=== PATIENT | female | born 1970 ===

== ENCOUNTER 2017-02-22 09:22 | Emergency (ER) | payer SELFPAY ==
[2017-02-22 09:22] VITALS: BMI 39.6
[2017-02-22 09:34] VITALS: O2SAT 98
[2017-02-22] MEDS ORDERED: Oxycodone/Acetaminophen 5/325 mg Tab PO STA (10:42)
[2017-02-22] MEDS ORDERED: Oxycodone/Acetaminophen 5/325 mg Tab ONE (10:54)
--- NOTE | 2017-02-22 11:01 | ED PDOC ---
Upper Extremity Pain/Injury Time Seen by Provider: 02/22/17 10:15 Chief Complaint (Nursing): Upper Extremity Problem/Injury History Per: Patient History/Exam Limitations: no limitations Onset/Duration Of Symptoms: Days (4), Gradual Current Symptoms Are (Timing): Still Present Quality: Dull Severity: Mild Exacerbating Factor(s): Nothing Additional History Per: Patient Additional Complaint(s): c/o painful lump on left axilla x4 days. Reports taking medication with no relief. states nml mamogram last year Past Medical History Reviewed: Historical Data, Nursing Documentation, Vital Signs Vital Signs: Last Vital Signs Temp 98.3 F 02/22/17 09:34 Pulse 73 02/22/17 09:34 Resp 18 02/22/17 09:34 BP 114/73 02/22/17 09:34 Pulse Ox 98 02/22/17 09:34 - Medical History PMH: Arthritis, Asthma, Diabetes, HTN, Hypercholesterolemia - Surgical History Surgical History: Appendectomy, Tonsillectomy, - Family History Family History: States: Unknown Family Hx - Living Arrangements Living Arrangements: With Family - Social History Current smoker - smoking cessation education provided: No - Home Medications Home Medications: Ambulatory Orders Medication Instructions Recorded Acetaminophen with Codeine 1 tab PO Q8H #10 tab 07/30/14 [Tylenol with Codeine No. 3 300 mg-30 mg] Cephalexin [Keflex] 500 mg PO QID #40 cap 07/30/14 Naproxen [Naprosyn] 500 mg PO Q12H #20 tab 09/23/14 Ibuprofen [Motrin] 600 mg PO Q8 #30 tab 03/11/15 Clindamycin [Cleocin] 300 mg PO TID #30 cap 05/18/15 Docusate Sodium [Colace] 100 mg PO BID #20 sgl 10/07/15 Naproxen 375 mg PO Q8 PRN #21 tab 10/07/15 diaZEpam [Valium] 5 mg PO Q6 PRN #14 tab 10/07/15 oxyCODONE/Acetaminophen [Percocet 1 ea PO Q6 #15 tab 10/07/15 5/325 mg Tab] Naproxen [Naprosyn] 500 mg PO BID #20 tab 02/25/16 Azithromycin [Zithromax] 250 mg PO DAILY #6 tablet 06/04/16 Neomycin/Polymyxin/Hydrocortis 3 drop OT TID #0 bottle 06/04/16 [Cortisporin Otic Susp] Tobramycin 0.3% [Tobramycin 5 Ml] 1 drop OP TID #0 bottle 06/04/16 Benzonatate [Tessalon Perles] 100 mg PO BID PRN 5 Days 10/16/16 Ibuprofen [Motrin] 600 mg PO TID 7 Days 10/16/16 Albuterol 0.083% [Albuterol 0.083% 2.5 mg IH Q4 PRN #20 neb 10/24/16 Inhal Fransisca (2.5 mg/3 ml) UD] Albuterol HFA [Ventolin HFA 90 1 - 2 puff IH Q4 PRN #1 inhaler 10/24/16 mcg/actuation (8 g)] Azithromycin [Zithromax] 250 mg PO DAILY #6 tab 10/24/16 Guaifenesin [Mucinex] 600 mg PO BID #14 tab.er.12h 10/24/16 Ibuprofen [Motrin Tab] 600 mg PO Q6 PRN #15 tab 10/24/16 Prednisone 50 mg PO DAILY #4 tab 10/24/16 Cephalexin [Keflex] 500 mg PO QID 28 Days 02/22/17 - Allergies Allergies/Adverse Reactions: Allergies Allergy/AdvReac Type Severity Reaction Status Date / Time No Known Allergies Allergy Verified 02/25/16 11:37 Review of Systems ROS Statement: Except As Marked, All Systems Reviewed And Found Negative Constitutional: Negative for: Fever, Chills Cardiovascular: Negative for: Chest Pain, Palpitations Respiratory: Negative for: Cough, Shortness of Breath Gastrointestinal: Negative for: Nausea, Vomiting, Abdominal Pain, Diarrhea Musculoskeletal: Negative for: Hand Pain Physical Exam - Reviewed Nursing Documentation Reviewed: Yes Vital Signs Reviewed: Yes - Physical Exam Appears: Positive for: Uncomfortable Head Exam: Positive for: ATRAUMATIC, NORMAL INSPECTION, NORMOCEPHALIC Eye Exam: Positive for: Normal appearance Neck: Positive for: Normal, Painless ROM, Supple Cardiovascular/Chest: Positive for: Regular Rate, Rhythm, Chest Non Tender, Other (right breat appears nml no masses) Respiratory: Positive for: Normal Breath Sounds. 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 Negative for: Motor/Sensory Deficits - Laboratory Results Result Diagrams: 02/22/17 13:00 02/22/17 13:00 - ECG O2 Sat by Pulse Oximetry: 98 Pulse Ox Interpretation: Normal - Progress ED Course And Treament: labs nml will f/u for biopsy of lesion, no signs of a drainable abscess but will start on antibiotics. seen by fp schedule for outpt biopsy no indication for inpt admission Re-evaluation Time: 14:01 Condition: Improved Disposition - Clinical Impression Clinical Impression: Abscess of axilla, left - Patient ED Disposition Is Patient to be Admitted: No Counseled Patient/Family Regarding: Studies Performed, Diagnosis, Need For Followup, Rx Given - Disposition Disposition: Routine/Home Disposition Time: 14:03 Condition: GOOD Additional Instructions: Follow up for biopsy. Prescriptions: Cephalexin [Keflex] 500 mg PO QID 28 Days Instructions: Abscess (ED)
--- NOTE | 2017-02-22 12:41 | US ---
PROCEDURE: Ultrasound limited soft tissue HISTORY: mass left axilla COMPARISON: Not available TECHNIQUE: Targeted ultrasound examination was performed in the left axilla in the region of the palpable abnormality. FINDINGS: The examination demonstrates a vascular mass in the subcutaneous soft tissues measuring approximately 1.0 x 0.7 by 1.0 cm. There is an irregular hypoechoic region centrally. This does not have a characteristic appearance of a lymph node. No specific findings. Possible abscess. Cannot rule out neoplasm. No additional abnormality demonstrated. IMPRESSION: Nonspecific soft tissue mass in subcutaneous soft tissues with hypervascularity. Possible abscess or neoplasm. No specific findings. No additional abnormality.
[2017-02-22 13:17] LABS: BASO # 0.1 K/uL (0.0-0.2); BASO % 0.7 % (0.0-2.0); EOS # 0.2 K/uL (0.0-0.7); EOS % 2.5 % (0.0-4.0); HEMATOCRIT 34.6 % (34.0-47.0); LYMPH # 3.2 K/uL (1.0-4.3); LYMPH % 39.5 % (20.0-40.0); MEAN CELL VOLUME 82.1 fl (81.0-99.0); MEAN CORPUSCULAR HEMOGLOBIN 28.3 pg (27.0-31.0); MEAN CORPUSCULAR HGB CONC 34.4 g/dL (33.0-37.0); MONO # 0.6 K/uL (0.0-0.8); MONO % 6.8 % (0.0-10.0); NEUT # 4.1 K/uL (1.8-7.0); NEUT % 50.5 % (50.0-75.0); NRBC % 0.1 % (0.0-0.0); RED CELL DISTRIBUTION WIDTH 13.3 % (11.5-14.5); WHITE BLOOD COUNT 8.1 K/uL (4.8-10.8)
[2017-02-22 13:27] LABS: ALKALINE PHOSPHATASE 80 U/L (38-126); ALT/SGPT 29 U/L (9-52); AST/SGOT 38 U/L (14-36); BILIRUBIN,TOTAL 0.4 mg/dl (0.2-1.3); BLOOD UREA NITROGEN 12 mg/dl (7-17); CALCIUM 8.9 mg/dL (8.4-10.2); CARBON DIOXIDE 23 mmol/L (22-30); CHLORIDE 104 mmol/L (98-107); GFR AFRICAN-AMERICAN > 60; GLUCOSE,RANDOM 163 mg/dL (65-105); POTASSIUM 3.6 MMOL/L (3.6-5.0); SODIUM 142 mmol/l (132-148); TOTAL PROTEIN 7.2 G/DL (6.3-8.2)
[2017-02-22 13:33] LABS: PARTIAL THROMBOPLASTIN TIME 26.7 SECONDS (23.3-32.5)
[2017-02-22 14:27] VITALS: BP 128/78; PULSE 78; RESP 20; TEMP 97.6
== END 2017-02-22 14:28 | disposition home or self-care (01) ==
LOC: H.ER 09:22
DX: L02.412 Cutaneous abscess of left axilla (principal); E11.9 Type 2 diabetes mellitus without complications; E78.00 Pure hypercholesterolemia, unspecified; I10 Essential (primary) hypertension

== ENCOUNTER 2017-10-13 21:38 | Emergency (ER) | payer SELFPAY ==
[2017-10-13 21:39] VITALS: BMI 39.6
[2017-10-13 21:49] VITALS: RESP 17; TEMP 100.6; O2SAT 99
[2017-10-13] MEDS ORDERED: Sodium Chloride 0.9% 1,000 ML IV STA (22:29)
--- NOTE | 2017-10-13 22:54 | ED PDOC ---
HPI: Abdomen Time Seen by Provider: 10/13/17 22:28 Chief Complaint (Nursing): Abdominal Pain Chief Complaint (Provider): Upper abdominal pain, vomiting, fever History Per: Patient History/Exam Limitations: no limitations Onset/Duration Of Symptoms: Days Outside of [place] travel?: No Current Symptoms Are (Timing): Still Present Severity: Moderate Pain Scale Rating Of: 6 Location Of Pain/Discomfort: Epigastric Quality Of Discomfort: Sharp, Other (Twisting ) Associated Symptoms: Fever, Nausea, Vomiting, Loss Of Appetite Exacerbating Factors: None Alleviating Factors: None Additional Complaint(s): Pt reports mild nausea last night. No similar in the past. Past Medical History Reviewed: Historical Data, Nursing Documentation, Vital Signs Vital Signs: Last Vital Signs Temp 100.6 F H 10/13/17 21:43 Pulse 108 H 10/13/17 21:43 Resp 17 10/13/17 21:43 BP 130/64 10/13/17 21:43 Pulse Ox 99 10/13/17 22:54 - Medical History PMH: Arthritis, Asthma, Diabetes - Surgical History Surgical History: Appendectomy, Tonsillectomy, - Family History Family History: States: Unknown Family Hx - Living Arrangements Living Arrangements: With Family - Social History Current smoker - smoking cessation education provided: No Alcohol: None Drugs: Denies - Home Medications Home Medications: Ambulatory Orders Medication Instructions Recorded Acetaminophen with Codeine 1 tab PO Q8H #10 tab 07/30/14 [Tylenol with Codeine No. 3 300 mg-30 mg] Cephalexin [Keflex] 500 mg PO QID #40 cap 07/30/14 Naproxen [Naprosyn] 500 mg PO Q12H #20 tab 09/23/14 Ibuprofen [Motrin] 600 mg PO Q8 #30 tab 03/11/15 Clindamycin [Cleocin] 300 mg PO TID #30 cap 05/18/15 Docusate Sodium [Colace] 100 mg PO BID #20 sgl 10/07/15 Naproxen 375 mg PO Q8 PRN #21 tab 10/07/15 diaZEpam [Valium] 5 mg PO Q6 PRN #14 tab 10/07/15 oxyCODONE/Acetaminophen [Percocet 1 ea PO Q6 #15 tab 10/07/15 5/325 mg Tab] Naproxen [Naprosyn] 500 mg PO BID #20 tab 04/13/16 Azithromycin [Zithromax] 250 mg PO DAILY #6 tablet 06/04/16 Neomycin/Polymyxin/Hydrocortis 3 drop OT TID #0 bottle 06/04/16 [Cortisporin Otic Susp] Tobramycin 0.3% [Tobramycin 5 Ml] 1 drop OP TID #0 bottle 06/04/16 Benzonatate [Tessalon Perles] 100 mg PO BID PRN 5 Days sgl 10/16/16 Ibuprofen [Motrin] 600 mg PO TID 7 Days tab 10/16/16 Albuterol 0.083% [Albuterol 0.083% 2.5 mg IH Q4 PRN #20 neb 10/24/16 Inhal Fransisca (2.5 mg/3 ml) UD] Albuterol HFA [Ventolin HFA 90 1 - 2 puff IH Q4 PRN #1 inhaler 10/24/16 mcg/actuation (8 g)] Azithromycin [Zithromax] 250 mg PO DAILY #6 tab 10/24/16 Guaifenesin [Mucinex] 600 mg PO BID #14 tab.er.12h 10/24/16 Ibuprofen [Motrin Tab] 600 mg PO Q6 PRN #15 tab 10/24/16 Prednisone 50 mg PO DAILY #4 tab 10/24/16 Cephalexin [Keflex] 500 mg PO QID 28 Days capsule 02/22/17 - Allergies Allergies/Adverse Reactions: Allergies Allergy/AdvReac Type Severity Reaction Status Date / Time No Known Allergies Allergy Verified 02/25/16 11:37 Review of Systems ROS Statement: Except As Marked, All Systems Reviewed And Found Negative Constitutional: Positive for: Fever, Chills Gastrointestinal: Positive for: Nausea, Vomiting, Abdominal Pain Genitourinary Female: Negative for: Dysuria Physical Exam - Reviewed Nursing Documentation Reviewed: Yes Vital Signs Reviewed: Yes - Physical Exam Appears: Positive for: Well, Non-toxic, No Acute Distress Head Exam: Positive for: ATRAUMATIC, NORMAL INSPECTION, NORMOCEPHALIC Skin: Positive for: Normal Color, Warm, DRY Eye Exam: Positive for: Normal appearance ENT: Positive for: Normal ENT Inspection Neck: Positive for: Normal, Painless ROM Cardiovascular/Chest: Positive for: Regular Rate, Rhythm Respiratory: Positive for: Normal Breath Sounds. Negative for: Accessory Muscle Use Gastrointestinal/Abdominal: Positive for: Bowel Sounds, Soft, Tenderness ( Epigastric, RUQ). Negative for: Normal Exam, Guarding, Rebound Back: Positive for: Normal Inspection Extremity: Positive for: Normal ROM Neurologic/Psych: Positive for: Alert, Oriented - Laboratory Results Result Diagrams: 10/13/17 23:15 10/13/17 23:15 - ECG O2 Sat by Pulse Oximetry: 99 Medical Decision Making Medical Decision Making: Endorsed pending US. Disposition - Clinical Impression Clinical Impression: Abdominal pain - Patient ED Disposition Is Patient to be Admitted: Transfer of Care Counseled Patient/Family Regarding: Diagnosis, Need For Followup - Disposition Disposition: Transfer of Care Disposition Time: 23:47 Condition: STABLE Forms: [employer] (Chinese)
[2017-10-13 23:19] LABS: BASO % 0.2 % (0.0-2.0); EOS # 0.1 K/uL (0.0-0.7); HEMATOCRIT 37.9 % (34.0-47.0); LYMPH # 1.5 K/uL (1.0-4.3); LYMPH % 14.3 % (20.0-40.0); MEAN CELL VOLUME 82.8 fl (81.0-99.0); MEAN CORPUSCULAR HEMOGLOBIN 27.8 pg (27.0-31.0); MEAN CORPUSCULAR HGB CONC 33.5 g/dL (33.0-37.0); MEAN PLATELET VOLUME 9.2 fl (7.2-11.7); MONO # 0.3 K/uL (0.0-0.8); NEUT # 8.3 K/uL (1.8-7.0); NEUT % 81.5 % (50.0-75.0); RED CELL DISTRIBUTION WIDTH 13.6 % (11.5-14.5); WHITE BLOOD COUNT 10.2 K/uL (4.8-10.8)
[2017-10-13 23:26] LABS: ALB/GLOB RATIO 1.2 (1.0-2.1); ALKALINE PHOSPHATASE 75 U/L (38-126); ALT/SGPT 72 U/L (9-52); AST/SGOT 74 U/L (14-36); BILIRUBIN,TOTAL 0.7 mg/dl (0.2-1.3); BLOOD UREA NITROGEN 11 mg/dl (7-17); CALCIUM 8.4 mg/dL (8.4-10.2); CARBON DIOXIDE 22 mmol/L (22-30); CHLORIDE 103 mmol/L (98-107); GFR AFRICAN-AMERICAN > 60; GLUCOSE,RANDOM 205 mg/dL (65-105); LIPASE 112 U/L (23-300); POTASSIUM 3.6 MMOL/L (3.6-5.0); SODIUM 137 mmol/l (132-148); TOTAL PROTEIN 7.7 G/DL (6.3-8.2)
--- NOTE | 2017-10-14 00:19 | US ---
EXAM: US Abdomen Limited, Right Upper Quadrant CLINICAL HISTORY: 47 years old, female; Pain; Abdominal pain; Epigastric; Additional info: Epigastric tenderness, vomiting, fever TECHNIQUE: Real-time ultrasound of the right upper quadrant with image documentation. COMPARISON: No relevant prior studies available. FINDINGS: Liver: Unremarkable in echogenicity and size measuring 15 cm in longitudinal dimension No intrahepatic bile duct dilation. Gallbladder: No acute findings. No gallstones. Common bile duct: No stones. No dilation (measuring 3 mm). Pancreas: Visualization of the pancreas is limited by overlying bowel gas. Right kidney: The right kidney is unremarkable in echogenicity and size measuring 10.4 x 4.5 x 4.2 cm. No obstructing stones. No solid mass. No hydronephrosis. IMPRESSION: Unremarkable sonographic evaluation of the right upper quadrant, as detailed above. Limited evaluation of the pancreas, secondary to overlying bowel gas.
--- NOTE | 2017-10-14 00:28 | ED PDOC ---
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 pt pending US Medical Decision Making Medical Decision Making: FINDINGS: Liver: Unremarkable in echogenicity and size measuring 15 cm in longitudinal dimension No intrahepatic bile duct dilation. Gallbladder: No acute findings. No gallstones. Common bile duct: No stones. No dilation (measuring 3 mm). Pancreas: Visualization of the pancreas is limited by overlying bowel gas. Right kidney: The right kidney is unremarkable in echogenicity and size measuring 10.4 x 4.5 x 4.2 cm. No obstructing stones. No solid mass. No hydronephrosis. IMPRESSION: Unremarkable sonographic evaluation of the right upper quadrant, as detailed above. Limited evaluation of the pancreas, secondary to overlying bowel gas. Thank you for allowing us to participate in the care of your patient. Dictated and Authenticated by: Christi Barnard MD 10/14/2017 12:18 AM Eastern Time ([place] & [place]) Pt with negative influ a/b pt most liekly with enteritis, however strongly advised to f.u with GI will rx cipro and flagly with Bentyl. VS have improved while in ER Temp Pulse Resp BP Pulse Ox 100.6 F H 108 H 17 130/64 99 10/13/17 21:43 10/13/17 21:43 10/13/17 21:43 10/13/17 21:43 10/13/17 23:47 Vital Signs - 24 hr 10/13/17 10/13/17 21:43 23:47 Temperature 100.6 F H Pulse Rate 108 H Respiratory 17 Rate Blood Pressure 130/64 O2 Sat by Pulse 99 99 Oximetry Disposition - Clinical Impression Clinical Impression: Abdominal pain - POA Present On Arrival: None - Disposition Disposition: Routine/Home Disposition Time: 00:28 Condition: STABLE Prescriptions: Ciprofloxacin HCl [Cipro] 500 mg PO BID #14 tab metroNIDAZOLE [Flagyl] 500 mg PO BID #14 tab Instructions: Colitis (ED) Progress Note - Review of Symptoms General: No: Chills, Night Sweats, Fatigue, Malaise, Appetite, Other HEENT: No: Head Aches, Visual Changes, Eye Pain, Ear Pain, Dysphasia, Sinus Congestion, Post Nasal Drip, Sore Throat, Other Pulmonary: No: Dyspnea, Cough, Pleuritic Chest Pain, Other Cardiovascular: No: Chest Pain, Palpitations, Orthopnea, Paroxysmal Noc. Dyspnea , Edema, Light Headedness, Other Gastrointestinal: No: Nausea, Vomiting, Abdominal Pain, Diarrhea, Constipation, Melena, Hematochezia, Other Genitourinary: No: Dysuria, Frequency, Incontinence, Hematuria, Retention, Other Musculoskeletal: No: Muscle Pain, Joint Pain, Other Neurological: No: Weakness, Numbness, Incoordination, Change in speech, Confusion, Seizures, Other
[2017-10-14 00:57] VITALS: BP 103/69; PULSE 78
== END 2017-10-14 01:02 | disposition home or self-care (01) ==
LOC: H.ER 21:38
DX: K52.9 Noninfective gastroenteritis and colitis, unspecified (principal); E11.9 Type 2 diabetes mellitus without complications; J45.909 Unspecified asthma, uncomplicated
CPT/HCPCS: 76705; 80053; 81025; 83690; 85025; 87040; 87804; 96360; 96374; 99283; J1885; J2405; J7040

== ENCOUNTER 2018-04-25 09:18 | Emergency (ER) | payer SELFPAY ==
[2018-04-25 09:18] VITALS: BMI 39.6
[2018-04-25 09:26] VITALS: RESP 20; O2SAT 98
[2018-04-25 10:31] VITALS: TEMP 98
--- NOTE | 2018-04-25 10:51 | ED PDOC ---
Lower Extremity Pain/Injury Time Seen by Provider: 04/25/18 09:45 Chief Complaint (Nursing): Lower Extremity Problem/Injury Chief Complaint (Provider): Lower Extremity Problem/Injury History Per: Patient History/Exam Limitations: no limitations Onset/Duration Of Symptoms: Days (x 2 ) Current Symptoms Are (Timing): Still Present Additional Complaint(s): 48 year old female with a history of a pre-diabetes presents to the ED left foot and leg pain for the last 2 days. Patient reports 2 weeks ago a curling iron fell on her left fourth toe. 2 days ago, her left foot and leg began to hurt especially when she walks. Patient has taken no medications for pain this week, but took Motrin last week with minimal relief. Denies swelling, chest pain and shortness of breath. PMD: [facility] Past Medical History Reviewed: Historical Data, Nursing Documentation, Vital Signs Vital Signs: Last Vital Signs Temp 98 F 04/25/18 10:30 Pulse 76 04/25/18 10:30 Resp 20 04/25/18 10:30 BP 107/60 04/25/18 10:30 Pulse Ox 98 04/25/18 10:30 - Medical History PMH: Arthritis, Asthma, Diabetes - Surgical History Surgical History: Appendectomy, Tonsillectomy, - Family History Family History: States: Unknown Family Hx - Home Medications Home Medications: Ambulatory Orders Medication Instructions Recorded Acetaminophen with Codeine 1 tab PO Q8H #10 tab 07/30/14 [Tylenol with Codeine No. 3 300 mg-30 mg] Cephalexin [Keflex] 500 mg PO QID #40 cap 07/30/14 Ibuprofen [Motrin] 600 mg PO Q8 #30 tab 03/11/15 Clindamycin [Cleocin] 300 mg PO TID #30 cap 05/18/15 Docusate Sodium [Colace] 100 mg PO BID #20 sgl 10/07/15 Naproxen 375 mg PO Q8 PRN #21 tab 10/07/15 diaZEpam [Valium] 5 mg PO Q6 PRN #14 tab 10/07/15 oxyCODONE/Acetaminophen [Percocet 1 ea PO Q6 #15 tab 10/07/15 5/325 mg Tab] Naproxen [Naprosyn] 500 mg PO BID #20 tab 02/25/16 Azithromycin [Zithromax] 250 mg PO DAILY #6 tablet 06/04/16 Neomycin/Polymyxin/Hydrocortis 3 drop OT TID #0 bottle 06/04/16 [Cortisporin Otic Susp] Tobramycin 0.3% [Tobramycin 5 Ml] 1 drop OP TID #0 bottle 06/04/16 Benzonatate [Tessalon Perles] 100 mg PO BID PRN 5 Days sgl 10/16/16 Ibuprofen [Motrin] 600 mg PO TID 7 Days tab 10/16/16 Albuterol 0.083% [Albuterol 0.083% 2.5 mg IH Q4 PRN #20 neb 10/24/16 Inhal Fransisca (2.5 mg/3 ml) UD] Albuterol HFA [Ventolin HFA 90 1 - 2 puff IH Q4 PRN #1 inhaler 10/24/16 mcg/actuation (8 g)] Azithromycin [Zithromax] 250 mg PO DAILY #6 tab 10/24/16 Guaifenesin [Mucinex] 600 mg PO BID #14 tab.er.12h 10/24/16 Ibuprofen [Motrin Tab] 600 mg PO Q6 PRN #15 tab 10/24/16 Prednisone 50 mg PO DAILY #4 tab 10/24/16 Cephalexin [Keflex] 500 mg PO QID 28 Days capsule 02/22/17 Ciprofloxacin HCl [Cipro] 500 mg PO BID #14 tab 10/14/17 metroNIDAZOLE [Flagyl] 500 mg PO BID #14 tab 10/14/17 Naproxen [Naprosyn] 500 mg PO Q12H #20 tab 04/25/18 - Allergies Allergies/Adverse Reactions: Allergies Allergy/AdvReac Type Severity Reaction Status Date / Time No Known Allergies Allergy Verified 02/25/16 11:37 Review of Systems ROS Statement: Except As Marked, All Systems Reviewed And Found Negative Musculoskeletal: Positive for: Leg Pain (left), Foot Pain (left fourth toe ) Physical Exam - Reviewed Nursing Documentation Reviewed: Yes Vital Signs Reviewed: Yes - Physical Exam Appears: Positive for: Non-toxic, No Acute Distress Head Exam: Positive for: ATRAUMATIC, NORMAL INSPECTION, NORMOCEPHALIC Skin: Positive for: Normal Color, Warm, Dry Eye Exam: Positive for: EOMI, Normal appearance, PERRL Extremity: Positive for: Normal ROM (left toe, foot and leg, Full ROM). Negative for: Deformity Neurologic/Psych: Positive for: Alert, Oriented. Negative for: Motor/Sensory Deficits - ECG O2 Sat by Pulse Oximetry: 98 (RA) Pulse Ox Interpretation: Normal - Progress Re-evaluation Time: 12:30 Condition: Re-examined, Improved Medical Decision Making Medical Decision Making: Time; 10:07 Impression: left foot injury and left leg pain. r/o fracture left fourth toe ( less likely) Left leg pain appears to be sciatic pain neuropathy Initial Plan: --Motrin 600 mg PO --Accucheck --Left 4th digit x-ray Glucose levels are high at 184. Time; 10:58 FINDINGS: BONES: No acute fracture. JOINTS: Normal. SOFT TISSUES: Normal. OTHER FINDINGS: Achilles enthesophyte. Small inferior plantar calcaneal spur. IMPRESSION: No demonstrated fracture or dislocation. Patient is stable and will be discharged home. Diagnosis is sciatica. Return to the ED if symptoms persist or worsen. Follow up with PMD. Scribe Attestation: Documented by Deborah Dubon, acting as a scribe for Rain Butterfield MD Provider Scribe Attestation: All medical record entries made by the Scribe were at my direction and personally dictated by me. I have reviewed the chart and agree that the record accurately reflects my personal performance of the history, physical exam, medical decision making, and the department course for this patient. I have also personally directed, reviewed, and agree with the discharge instructions and disposition. Disposition - Clinical Impression Clinical Impression: Foot injury, Sciatica - Patient ED Disposition Is Patient to be Admitted: No Doctor Will See Patient In The: Office Counseled Patient/Family Regarding: Studies Performed, Diagnosis, Need For Followup - Disposition Referrals: [facility] [Outside] [facility] [Outside] Disposition: Routine/Home Disposition Time: 12:30 Condition: GOOD Additional Instructions: Take your medications as instructed. Follow up with your PCP in 2-3 days. Prescriptions: Naproxen [Naprosyn] 500 mg PO Q12H #20 tab Instructions: Sciatica (DC) Print Language: SYRIAC
--- NOTE | 2018-04-25 11:00 | RAD ---
PROCEDURE: Left Foot Radiographs. HISTORY: toe injury pain COMPARISON: None. FINDINGS: BONES: No acute fracture. JOINTS: Normal. SOFT TISSUES: Normal. OTHER FINDINGS: Achilles enthesophyte. Small inferior plantar calcaneal spur. IMPRESSION: No demonstrated fracture or dislocation.
[2018-04-25 13:51] VITALS: BP 120/70; PULSE 74
== END 2018-04-25 13:51 | disposition home or self-care (01) ==
LOC: H.ER 09:18
DX: S99.922A Unspecified injury of left foot, initial encounter (principal); E11.9 Type 2 diabetes mellitus without complications; J45.909 Unspecified asthma, uncomplicated; M54.30 Sciatica, unspecified side; W20.8XXA Other cause of strike by thrown, projected or falling object, initial encounter

== ENCOUNTER 2019-03-17 08:04 | Emergency (ER) | payer OTHER ==
[2019-03-17 08:09] VITALS: RESP 18; BMI 35.3
--- NOTE | 2019-03-17 09:12 | ED PDOC ---
Upper Extremity Pain/Injury Time Seen by Provider: 03/17/19 08:28 Chief Complaint (Nursing): Upper Extremity Problem/Injury Chief Complaint (Provider): Upper Right Shoulder Pain History Per: Patient History/Exam Limitations: no limitations Onset/Duration Of Symptoms: Days Additional Complaint(s): 49 year old female with history of HTN, DM, arthritis presents to ED with severe, upper right scapular area pain x4 days. Patient reports having upper right shoulder pain for several months that has worsened over the last four days and of having a fall in January that injured her right shoulder. However, patient notes pain was present even before this incident. Patient additionally describes pain as radiating into right arm but denies chest pain, shortness of breath, weakness, numbness, and other complaints. She also states she is unable to sleep at night due to pain and states pain worsens with movement. 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 It is unclear if patient went to a physician for evaluation of right scapular pain since onset several months ago. PDM: none provided Past Medical History Reviewed: Historical Data, Nursing Documentation, Vital Signs Vital Signs: Last Vital Signs Temp 97.6 F 03/17/19 08:08 Pulse 69 03/17/19 08:08 Resp 18 03/17/19 08:08 BP 109/72 03/17/19 08:08 Pulse Ox 98 03/17/19 08:08 Primary Care Provider: Non [facility] Provider, - Medical History PMH: Arthritis, Asthma, Diabetes, HTN, Hyperlipidemia - Surgical History Surgical History: Appendectomy, Tonsillectomy, Other surgeries: orthopedic surgeries - Family History Family History: States: No Known Family Hx - Social History Current smoker - smoking cessation education provided: No Alcohol: None Drugs: Denies - Home Medications Home Medications: Ambulatory Orders Medication Instructions Recorded Acetaminophen with Codeine 1 tab PO Q8H #10 tab 07/30/14 [Tylenol with Codeine No. 3 300 mg-30 mg] Cephalexin [Keflex] 500 mg PO QID #40 cap 07/30/14 Ibuprofen [Motrin] 600 mg PO Q8 #30 tab 03/11/15 Clindamycin [Cleocin] 300 mg PO TID #30 cap 05/18/15 Docusate Sodium [Colace] 100 mg PO BID #20 sgl 10/07/15 Naproxen 375 mg PO Q8 PRN #21 tab 10/07/15 diaZEpam [Valium] 5 mg PO Q6 PRN #14 tab 10/07/15 oxyCODONE/Acetaminophen [Percocet 1 ea PO Q6 #15 tab 10/07/15 5/325 mg Tab] Naproxen [Naprosyn] 500 mg PO BID #20 tab 02/25/16 Azithromycin [Zithromax] 250 mg PO DAILY #6 tablet 06/04/16 Neomycin/Polymyxin/Hydrocortis 3 drop OT TID #0 bottle 06/04/16 [Cortisporin Otic Susp] Tobramycin 0.3% [Tobramycin 5 Ml] 1 drop OP TID #0 bottle 06/04/16 Benzonatate [Tessalon Perles] 100 mg PO BID PRN 5 Days sgl 10/16/16 Ibuprofen [Motrin] 600 mg PO TID 7 Days tab 10/16/16 Albuterol 0.083% [Albuterol 0.083% 2.5 mg IH Q4 PRN #20 neb 10/24/16 Inhal Fransisca (2.5 mg/3 ml) UD] Albuterol HFA [Ventolin HFA 90 1 - 2 puff IH Q4 PRN #1 inhaler 10/24/16 mcg/actuation (8 g)] Azithromycin [Zithromax] 250 mg PO DAILY #6 tab 10/24/16 Guaifenesin [Mucinex] 600 mg PO BID #14 tab.er.12h 10/24/16 Ibuprofen [Motrin Tab] 600 mg PO Q6 PRN #15 tab 10/24/16 Prednisone 50 mg PO DAILY #4 tab 10/24/16 Cephalexin [Keflex] 500 mg PO QID 28 Days capsule 02/22/17 Ciprofloxacin HCl [Cipro] 500 mg PO BID #14 tab 10/14/17 metroNIDAZOLE [Flagyl] 500 mg PO BID #14 tab 10/14/17 Naproxen [Naprosyn] 500 mg PO Q12H #20 tab 04/25/18 Cyclobenzaprine [Cyclobenzaprine 10 mg PO TID #15 tab 03/17/19 HCl] Naproxen 500 mg PO BID #30 tab 03/17/19 - Allergies Allergies/Adverse Reactions: Allergies Allergy/AdvReac Type Severity Reaction Status Date / Time No Known Allergies Allergy Verified 02/25/16 11:37 Review of Systems ROS Statement: Except As Marked, All Systems Reviewed And Found Negative Constitutional: Negative for: Weakness Cardiovascular: Negative for: Chest Pain Respiratory: Negative for: Shortness of Breath Musculoskeletal: Positive for: Shoulder Pain (severe upper right scapular) Neurological: Negative for: Numbness Physical Exam - Reviewed Nursing Documentation Reviewed: Yes Vital Signs Reviewed: Yes - Physical Exam Appears: Positive for: No Acute Distress Head Exam: Positive for: ATRAUMATIC Skin: Positive for: Normal Color, Warm, Dry. Negative for: Rash Eye Exam: Positive for: EOMI, Normal appearance, PERRL Neck: Positive for: Normal Pulses-Radial (L): 2+ Pulses-Radial (R): 2+ Extremity: Positive for: Normal ROM (Limited ROM secondary to pain of the right shoulder. Full ROM to all other extremities.), Tenderness (to palpation over right scapular area). Negative for: Deformity Neurological/Psych: Positive for: Awake, Alert, Oriented (x3). Negative for: Motor/Sensory Deficits - ECG O2 Sat by Pulse Oximetry: 98 (RA) Pulse Ox Interpretation: Normal - Progress Re-evaluation Time: 11:00 Condition: Re-examined, Improved Medical Decision Making Medical Decision Making: Time: 909 Initial Impression: acute on chronic right shoulder right scapular pain and previous injury reported to the right shoulder DDx includes: musculoskeletal pain, rotator cuff injury, brachial plexus neuropathy Initial Plan: --X-ray (Shoulder Right) --Flexeril 10 mg PO --Toradol 30 mg IM 0936 XR RESULTS Date of service: 03/17/2019 PROCEDURE: Radiographs of the Right Shoulder HISTORY: Right shoulder pain injury in january COMPARISON: No prior. TECHNIQUE: 3 views obtained. FINDINGS: BONES: Normal. No fracture. JOINTS: Normal. Glenohumeral and acromioclavicular joints preserved. No significant osteoarthritis. SOFT TISSUES: Small linear calcification within the soft tissues adjacent to the greater tuberosity consistent with calcific tendinitis. OTHER FINDINGS: None. IMPRESSION: Small linear calcification within the soft tissues adjacent to the greater tuberosity consistent with calcific tendinitis. Scribe Attestation: Documented by Norberto Spencer training under Nena Shaver, acting as a scribe for Rain Butterfield MD. Provider Scribe Attestation: All medical record entries made by the Scribe were at my direction and pe rsonally dictated by me. I have reviewed the chart and agree that the record accurately reflects my personal performance of the history, physical exam, medical decision making, and the department course for this patient. I have also personally directed, reviewed, and agree with the discharge instructions and disposition. Disposition - Clinical Impression Clinical Impression: Calcific tendinitis - Patient ED Disposition Is Patient to be Admitted: No Doctor Will See Patient In The: Office Counseled Patient/Family Regarding: Studies Performed, Diagnosis, Need For Followup - Disposition Referrals: Vianca Hendricks MD [Staff Provider] - Disposition: Routine/Home Disposition Time: 11:01 Condition: GOOD Additional Instructions: MARBELLA MARSHALL, thank you for letting us take care of you today. Your provider was Rain Butterfield MD and you were treated for BACK PAIN. The emergency medical care you received today was directed at your acute symptoms. If you were prescribed any medication, please fill it and take as directed. It may take several days for your symptoms to resolve. Return to the Emergency Department if your symptoms worsen, do not improve, or if you have any other problems. Please contact your doctor or call one of the physicians/clinics you have been referred to that are listed on the Patient Visit Information form that is included in your discharge packet. Bring any paperwork you were given at discharge with you along with any medications you are taking to your follow up visit. Our treatment cannot replace ongoing medical care by a primary care provider outside of the emergency department. Thank you for allowing the [facility] team to be part of your care today. If you had an X-Ray or CT scan: A Radiologist will review the ED reading if any change in treatment is needed we will contact you. If you had a blood, urine, or wound culture: It will take several days for the results, if any change in treatment is needed we will contact you. Prescriptions: Cyclobenzaprine [Cyclobenzaprine HCl] 10 mg PO TID #15 tab Naproxen 500 mg PO BID #30 tab Instructions: Tendonitis Print Language: GREENLANDIC
--- NOTE | 2019-03-17 09:40 | RAD ---
Date of service: 03/17/2019 PROCEDURE: Radiographs of the Right Shoulder HISTORY: Right shoulder pain injury in january COMPARISON: No prior. TECHNIQUE: 3 views obtained. FINDINGS: BONES: Normal. No fracture. JOINTS: Normal. Glenohumeral and acromioclavicular joints preserved. No significant osteoarthritis. SOFT TISSUES: Small linear calcification within the soft tissues adjacent to the greater tuberosity consistent with calcific tendinitis. OTHER FINDINGS: None. IMPRESSION: Small linear calcification within the soft tissues adjacent to the greater tuberosity consistent with calcific tendinitis.
[2019-03-17 11:27] VITALS: BP 110/70; PULSE 70; TEMP 98
[2019-03-17 15:03] VITALS: O2SAT 98
== END 2019-03-17 11:24 | disposition home or self-care (01) ==
LOC: H.ER 08:04
DX: M75.31 Calcific tendinitis of right shoulder (principal); E11.9 Type 2 diabetes mellitus without complications; E78.5 Hyperlipidemia, unspecified; I10 Essential (primary) hypertension
CPT/HCPCS: 73030; 81025; 96372; 99283; J1885

== ENCOUNTER 2019-03-27 13:22 | Emergency (ER) | payer OTHER, SELFPAY ==
[2019-03-27 13:22] VITALS: BMI 35.3
[2019-03-27 13:48] VITALS: TEMP 98.7
--- NOTE | 2019-03-27 14:34 | ED PDOC ---
HPI: General Adult Time Seen by Provider: 03/27/19 14:20 Chief Complaint (Nursing): Upper Extremity Problem/Injury Chief Complaint (Provider): RIGHT SHOULDER PAIN History Per: Patient (49 Y/O FEMALE HERE WITH RIGHT SHOULDER PAIN ASSOCIATED WITH CALCIFIC TENDONITIS RETURNS FOR PERSISTENT PAIN WORSENING YESTERDAY NIGHT. STATES RX GIVEN AT LAST VISIT 03/17/2019 IS NOW COMPLETED.) Past Medical History Reviewed: Historical Data, Nursing Documentation, Vital Signs Vital Signs: Last Vital Signs Temp 98.7 F 03/27/19 13:46 Pulse 83 03/27/19 13:46 Resp 18 03/27/19 13:46 BP 100/67 03/27/19 13:46 Pulse Ox 100 03/27/19 13:46 Primary Care Provider: Maximiliano Bueno - Medical History PMH: Arthritis, Asthma, Diabetes, HTN, Hyperlipidemia - Surgical History Surgical History: Appendectomy, Tonsillectomy, - Family History Family History: States: Unknown Family Hx - Home Medications Home Medications: Ambulatory Orders Medication Instructions Recorded Acetaminophen with Codeine 1 tab PO Q8H #10 tab 07/30/14 [Tylenol with Codeine No. 3 300 mg-30 mg] Cephalexin [Keflex] 500 mg PO QID #40 cap 07/30/14 Ibuprofen [Motrin] 600 mg PO Q8 #30 tab 03/11/15 Clindamycin [Cleocin] 300 mg PO TID #30 cap 05/18/15 Docusate Sodium [Colace] 100 mg PO BID #20 sgl 10/07/15 Naproxen 375 mg PO Q8 PRN #21 tab 10/07/15 diaZEpam [Valium] 5 mg PO Q6 PRN #14 tab 10/07/15 oxyCODONE/Acetaminophen [Percocet 1 ea PO Q6 #15 tab 10/07/15 5/325 mg Tab] Naproxen [Naprosyn] 500 mg PO BID #20 tab 02/25/16 Azithromycin [Zithromax] 250 mg PO DAILY #6 tablet 06/04/16 Neomycin/Polymyxin/Hydrocortis 3 drop OT TID #0 bottle 06/04/16 [Cortisporin Otic Susp] Tobramycin 0.3% [Tobramycin 5 Ml] 1 drop OP TID #0 bottle 06/04/16 Benzonatate [Tessalon Perles] 100 mg PO BID PRN 5 Days sgl 10/16/16 Ibuprofen [Motrin] 600 mg PO TID 7 Days tab 10/16/16 Albuterol 0.083% [Albuterol 0.083% 2.5 mg IH Q4 PRN #20 neb 10/24/16 Inhal Fransisca (2.5 mg/3 ml) UD] Albuterol HFA [Ventolin HFA 90 1 - 2 puff IH Q4 PRN #1 inhaler 10/24/16 mcg/actuation (8 g)] Azithromycin [Zithromax] 250 mg PO DAILY #6 tab 10/24/16 Guaifenesin [Mucinex] 600 mg PO BID #14 tab.er.12h 10/24/16 Ibuprofen [Motrin Tab] 600 mg PO Q6 PRN #15 tab 10/24/16 Prednisone 50 mg PO DAILY #4 tab 10/24/16 Cephalexin [Keflex] 500 mg PO QID 28 Days capsule 02/22/17 Ciprofloxacin HCl [Cipro] 500 mg PO BID #14 tab 10/14/17 metroNIDAZOLE [Flagyl] 500 mg PO BID #14 tab 10/14/17 Naproxen [Naprosyn] 500 mg PO Q12H #20 tab 04/25/18 Cyclobenzaprine [Cyclobenzaprine 10 mg PO TID #15 tab 03/17/19 HCl] Naproxen 500 mg PO BID #30 tab 03/17/19 Naproxen 375 mg PO Q8 PRN #21 tablet 03/27/19 - Allergies Allergies/Adverse Reactions: Allergies Allergy/AdvReac Type Severity Reaction Status Date / Time No Known Allergies Allergy Verified 02/25/16 11:37 Review of Systems ROS Statement: Except As Marked, All Systems Reviewed And Found Negative Musculoskeletal: Positive for: Shoulder Pain Physical Exam - Reviewed Nursing Documentation Reviewed: Yes Vital Signs Reviewed: Yes - Physical Exam Appears: Positive for: Well, Non-toxic, No Acute Distress Head Exam: Positive for: ATRAUMATIC, NORMAL INSPECTION, NORMOCEPHALIC Skin: Positive for: Normal Color, Warm, DRY Eye Exam: Positive for: EOMI, Normal appearance, PERRL ENT: Positive for: Normal ENT Inspection Neck: Positive for: Normal, Painless ROM Cardiovascular/Chest: Positive for: Regular Rate, Rhythm Respiratory: Positive for: CNT, Normal Breath Sounds Gastrointestinal/Abdominal: Positive for: Normal Exam, Soft Back: Positive for: Normal Inspection Extremity: Positive for: Normal ROM, Tenderness (RIGHT LATERAL SHOULDER TENDER TO TOUCH. ) Neurological/Psych: Positive for: Awake, Alert, Normal Tone - ECG O2 Sat by Pulse Oximetry: 100 - Progress ED Course And Treament: TORADOL 30 MG IM X DOSE Disposition - Clinical Impression Clinical Impression: Calcific tendinitis of right shoulder - Patient ED Disposition Is Patient to be Admitted: No - Disposition Disposition: Routine/Home Disposition Time: 14:34 Condition: FAIR Prescriptions: Naproxen 375 mg PO Q8 PRN #21 tablet PRN Reason: Pain, Moderate (4-7) Instructions: Calcific Tendonitis of the Shoulder (DC) Forms: [facility] ED School/Work Excuse Print Language: TANZANIAN
[2019-03-27 15:21] VITALS: BP 107/58; PULSE 68; RESP 16; O2SAT 97
== END 2019-03-27 15:27 | disposition home or self-care (01) ==
LOC: H.ER 13:22
DX: M75.31 Calcific tendinitis of right shoulder (principal); E11.9 Type 2 diabetes mellitus without complications; I10 Essential (primary) hypertension; J45.909 Unspecified asthma, uncomplicated
CPT/HCPCS: 81025; 96372; 99284; J1885